=== PATIENT | male | born 1945 | race Caucasian/White ===

== ENCOUNTER → 2018-12-12 | Outpatient (CLI) | payer MEDICARE, BC | LOC: COL.RAD 09:52 | DX: R06.02 Shortness of breath (principal) ==

== ENCOUNTER → 2019-02-14 | Outpatient (CLI) | payer MEDICARE, BC | LOC: COL.PUL 09:36 | DX: R06.02 Shortness of breath (principal) | CPT/HCPCS: J7674 ==